=== PATIENT | male | born 1980 | race Caucasian/White ===

== ENCOUNTER 2017-08-21 18:21 | Inpatient (IN) | payer SELFPAY ==
[2017-08-21] MEDS ORDERED: AMIODARONE HCL 150 MG/3 ML VIAL IV ONE ×2 (18:25→18:31)
[2017-08-21] MEDS ORDERED: AMIODARONE HCL 200 ML IV ONE (18:28)
[2017-08-21] MEDS ORDERED: NS 1,000 ML IV ONE (18:30)
[2017-08-21] MEDS ORDERED: AMIODARONE A.FIB-6HR INFSN (ORDER 2/3) IV ONE (18:30)
[2017-08-21] MEDS ORDERED: ONDANSETRON 4 MG/2 ML VIAL IVP ONE (18:30)
[2017-08-21] MEDS ORDERED: LORazepam 2 MG/ML INJ ONE (18:32)
--- NOTE | 2017-08-21 18:32 | CPEKG ---
Heart Rate: 154 RR Interval: 390 P-R Interval: 164 QRSD Interval: 96 QT Interval: 276 QTC Interval: 442 P [place]: 76 QRS [place]: 86 T Wave [place]: 34 EKG Severity - ABNORMAL ECG - EKG Impression: SINUS TACHYCARDIA EKG Impression: VENTRICULAR BIGEMINY EKG Impression: ST DEPRESSION, CONSIDER ISCHEMIA, INF LEADS Electronically Signed By: Birdie Coronado 21-Aug-2017 22:22:43
[2017-08-21 18:37] LABS: % IMMATURE GRANULYOCYTES 0.3 % (0.0-1.1); ABSOLUTE IMMATURE GRANULOCYTES 0.03 10^3/uL (0.00-0.10); ADD DIFF? NO; ADD MORPH? NO; ADD SCAN? NO; ATYPICAL LYMPHOCYTE FLAG 0 (0-99); FRAGMENT RBC FLAG 0 (0-99); HEMATOCRIT 44.5 % (40.0-51.0); HEMOGLOBIN 15.4 g/dL (13.7-17.5); LEFT SHIFT FLG 0 (0-99); LIPEMIA HEMOLYSIS FLAG 90 (0-99); MEAN CELL HEMOGLOBIN 30.2 pg (27.9-34.1); MEAN CELL HEMOGLOBIN CONCENTR. 34.6 g/dL (32.4-36.7); MEAN CELL VOLUME 87.3 fL (81.5-99.8); MEAN PLATELET VOLUME 9.2 fL (8.7-11.7); PLATELET CLUMPS FLAG 20 (0-99); PLATELET COUNT 287 10^3/uL (150-400); RED CELL DISTRIBUTION WIDTH 12.1 % (11.5-15.2)
[2017-08-21] MEDS ORDERED: MAGNESIUM SULF 2 GM/WATER 50 ML BAG IV ONE (18:37)
[2017-08-21 18:52] LABS: INR 0.96 (0.83-1.16)
[2017-08-21 18:56] LABS: ANION GAP 20 mEq/L (8-16); CALCIUM 9.4 mg/dL (8.5-10.4); CARBON DIOXIDE 18 mEq/l (22-31); CHLORIDE 102 mEq/L (97-110); CREATININE 0.9 mg/dL (0.7-1.3); ETHANOL SERUM < 10 mg/dL (0-10); GLOMERULAR FILTRATION RATE > 60; GLUCOSE 163 mg/dL (70-100); SODIUM 140 mEq/L (134-144)
[2017-08-21] MEDS ORDERED: POTASSIUM Cl (KCl) 10 MEQ/100 ML BAG IV ONE (19:00)
[2017-08-21] MEDS ORDERED: IOPAMIDOL (ISOVUE 370) 100 ML BTL IV ONE (19:05)
[2017-08-21 19:08] LABS: CREATINE KINASE-MB FRACTION 0.98 ng/mL (0.00-3.19); TROPONIN I < 0.012 ng/mL (0.000-0.034)
[2017-08-21 19:10] LABS: APTT 24.6 SEC (23.0-38.0)
[2017-08-21] MEDS ORDERED: POTASSIUM Cl (KCl) 100 ML IV SCH (19:15)
--- NOTE | 2017-08-21 19:16 | EDPHY ---
H & P Time Seen by Provider: 08/21/17 18:40 HPI/ROS: HPI Cardiac arrest. 36-year-old male by ambulance from a local climbing gym. Bystanders witnessed the patient walking across the gym floor. He suddenly collapsed. He appeared to convulse briefly. Bystanders did not detect a pulse. An AED was placed. It indicated to shock secondary to ventricular tachycardia. He was shocked once. He regained consciousness. He appeared confused. EMS reported a tachycardic wide complex rhythm on arrival. He does not remember immediate events prior to his cardiac arrest. ROS Constitutional: No fever, no chills. As above. Eyes: No discharge. No changes in vision. ENT: No sore throat. No nasal congestion or rhinorrhea. Respiratory: No cough. No shortness of breath. Cardiac: No chest pain, no palpitations. Gastrointestinal: No abdominal pain, no vomiting, no diarrhea. Genitourinary: No hematuria. No dysuria or increased frequency with urination. Musculoskeletal: No back pain. No neck pain. No myalgias or arthralgias. Skin: No rashes. Neurological: No headache. No focal weakness or altered sensation. Past medical history: Patient denies any past medical history. His father apparently had a heart attack in his 50s. The patient does not smoke. Denies IV drug street drug use. Denies alcohol. Social history: Here by himself. As above. Physical Exam: General Appearance: Alert, confused. Tracks with eyes but slow to answer questions. Does answer questions appropriately however when redirected. This patient appears well-hydrated and well-nourished. Eyes: Pupils equal and round 3-2 mm bilaterally, no pallor or injection. No lid edema, erythema or injection. No nystagmus. ENT, Mouth: Mucous membranes are moist. The pharyngeal tissues are unremarkable. No edema or swelling. No asymmetry suggestive of abscess. No erythema or exudates. No significant tongue lacerations or abrasions. Respiratory: There are no retractions, lungs are clear to auscultation with good air movement bilaterally. Cardiovascular: Regular rate and rhythm. Tachycardia. No murmur appreciated. Gastrointestinal: Abdomen is soft and nontender, no masses, bowel sounds normal. No focal tenderness at McBurney's point. No Hurtado sign. Neurological: Motor sensory function is grossly intact. Cranial nerves are normal. Skin: Warm and dry, no rashes. Musculoskeletal: Neck is supple and nontender. Extremities are symmetrical. All joints range without pain or impingement. Psychiatric: Mild agitation. No depression. Database: EKG: EKG time is 6:24 p.m.: EKG shows a sinus rhythm with ventricular bigeminy ST depressions noted in the inferior leads. Ventricular rate of 154. Interpreted by me. EKG time is 7:36 p.m.; EKG shows a narrow complex normal sinus rhythm with a ventricular rate of 94. Intermittent PVC noted. The ND, QRS, QT intervals are within normal limits. There are no ST-T wave changes indicative of ischemic or injury pattern. No evidence of right heart strain. No evidence of WPW, Brugada syndrome, hypertrophic cardiomyopathy. Interpreted by me. Imaging: Chest x-ray AP portable; the cardiac mediastinal silhouette is unremarkable. No evidence of infiltrate or pneumothorax. No acute cardiopulmonary disease process noted. Interpreted by me. CT scan of head without contrast; no pulmonary embolism, mild pulmonary edema and mild cardiomegaly. Results were discussed with staff radiologist. Procedures: Emergency department course: On initial arrival, patient placed on shelter monitor. Advanced airway equipment to the bedside. Pacer pads placed. High-flow nasal cannula oxygen started. Pulse oximetry on 10 L 95%. 2 IVs placed bilateral antecubital. Patient started on IV normal saline with 1 L to be given over the next hour. EKG obtained and reviewed by myself. After interpretation of EKG, patient was given 150 mg of IV amiodarone slow push. EKG changes as noted above were not significantly altered by this medication. He was given an additional 150 mg of IV amiodarone slow push followed by a drip at 1 milligram/minute. He was given 2 g of IV magnesium secondary to initial hypokalemia on i-STAT at 2.5. His formal laboratory potassium is 3.0. He was started on potassium replacement at 10-20 mEq per hour while in the emergency department. Echocardiogram ordered. CT scan of head without contrast secondary to confusion/altered mental status ordered. 7 o'clock, echocardiogram being performed. Cardiology paged. Initial images indicate no evidence of significant right heart strain. Significant pulmonary embolism unlikely. 7:15 p.m., spoke with on-call installation specialist, Dr. Watt. Case discussed in detail with him. He agrees with above emergency department management. He is requesting we admit the patient to the hospitalist service, ICU and he will see the patient after admission. I discussed with him coming to the emergency department to see this patient now. He does not feel this is necessary at this time. 7:20 p.m., echocardiogram completed. Patient sent for CT imaging of head and CT angio chest. 7:30 p.m., spoke with on-call hospitalist. Dr. Jaren Cisneros will accept this patient for admission under the hospitalist service after the patient has been seen by Cardiology. 7:50 p.m., patient re-evaluated. He is alert and oriented. He is responding to questions appropriately. He has no complaints at this time. ekg monitor shows a narrow complex sinus rhythm with ventricular rate of 72. Blood pressure is 126/75. The patient will be admitted to Cardiology, Dr. Brenden Keller who is on his way to the hospital currently to see this patient. 8:20 p.m., Dr. Watt of the Cardiology Service saw this patient in the emergency department. No plan to take him to the laborer cutting tool at this time. Dr. Watt are agrees with emergency department management and does not have any further recommendations at this time. The patient's remaining emergency department course under my care has been unremarkable. He has had no chest pain or shortness of breath. He was admitted to the ICU in stable and improved condition by the cardiology service. Differential Diagnosis: The differential diagnosis on this patient includes but is not limited to cardiac arrest, ventricular tachycardia, hypokalemia induced ventricular tachycardia/ventricular fibrillation, possible anoxic brain injury. This represents a partial list of diagnoses considered. These considerations are based on history, physical exam, past history, reassessment and diagnostic testing. Smoking Status: Never smoked Constitutional: Initial Vital Signs Temperature (C) 36.8 C 08/21/17 18:18 Heart Rate 140 H 08/21/17 18:18 Respiratory Rate 0 L 08/21/17 18:18 Blood Pressure 170/81 H 08/21/17 18:18 O2 Sat (%) 94 08/21/17 18:18 O2 Delivery Mode Nasal Cannula O2 (L/minute) 2 Allergies/Adverse Reactions: No Known Allergies Allergy (Unverified 08/21/17 22:08) Home Medications: Medication Instructions Recorded NK [No Known Home Meds] 08/21/17 Medical Decision Making Critical Care Time: I spent a total of 52 minutes of critical care time in obtaining history, performing a physical exam, bedside monitoring of interventions, collecting and interpreting tests and discussion with consultants but not including time spent performing procedures. - Data Points Laboratory Results: Laboratory Results 08/21/17 18:16 08/21/17 18:16 Medications Given: Discontinued Medications Amiodarone HCl (Amiodarone Hcl) 150 mg IV EDNOW ONE Stop: 08/21/17 18:26 Last Admin: 08/21/17 18:25 Dose: 150 mg Amiodarone HCl (Amiodarone Hcl) 150 mg IV EDNOW ONE Stop: 08/21/17 18:32 Last Admin: 08/21/17 18:31 Dose: 150 mg Amiodarone HCl (Amiodarone Hcl) 200 mls @ 33.333 mls/hr IV ONCE ONE PRN Reason: Protocol Stop: 08/22/17 00:29 Last Admin: 08/21/17 18:37 Dose: 200 mls Sodium Chloride (Ns) 1,000 mls @ 0 mls/hr IV EDNOW ONE; Wide Open PRN Reason: Protocol Stop: 08/21/17 18:31 Last Admin: 08/21/17 18:27 Dose: 1,000 mls Potassium Chloride (Potassium Cl 10 Meq (Premix)) 100 mls @ 100 mls/hr IV Q1H [place] Stop: 08/21/17 22:14 Last Admin: 08/21/17 19:05 Dose: 100 mls Potassium Chloride 10 meq/ (Sodium Chloride) 100 mls @ 100 mls/hr IV Q1H [place] Stop: 08/21/17 21:14 Last Admin: 08/21/17 21:19 Dose: 100 mls Amiodarone HCl (Amiodarone Hcl) 200 mls @ 16.667 mls/hr IV CONT [place] PRN Reason: Protocol Stop: 02/18/18 00:29 Last Admin: 08/22/17 00:32 Dose: 200 mls Metoprolol Tartrate (Lopressor) 25 mg PO ONCE ONE Stop: 08/22/17 12:55 Last Admin: 08/22/17 13:12 Dose: 25 mg Ondansetron HCl (Zofran) 4 mg IVP EDNOW ONE Stop: 08/21/17 18:31 Last Admin: 08/21/17 18:27 Dose: 4 mg Departure - Departure Disposition: [facility] Inpatient Acute Clinical Impression: Cardiac arrest, Altered mental status, Ventricular bigeminy, Hypokalemia
[2017-08-21] MEDS: POTASSIUM Cl (KCl) 10 MEQ in NS 100 ML IV SCH ×2 (20:07→21:19)
--- NOTE | 2017-08-21 21:15 | ECHO ---
[email or web address] [address] [address] Main: [phone] Fax: Transthoracic Echocardiogram Name: ALFREDO MARINO MR#: [id number] Study Date: 08/21/2017 Study Time: 07:10 PM Date of : 1980 Age: 36 year(s) Height: 167.6 cm (66 in.) Weight: 72.58 kg (160 lb.) BSA: 1.82 m2 Gender: Male Examination: RAE Indication: Post Cardiac Arrest, Defibrillator shock in field post 3 minutes CPR, Increased D-dimer Image Quality: Contrast: Requested by: Birdie Bojorquez BP: 130 mmHg/68 mmHg Heart Rate: Rhythm: Tachycardia Indication: Post Cardiac Arrest, Defibrillator shock in field post 3 minutes CPR, Increased D-dimer Procedure Staff Vacation Guide: Arden Clemons Reading Physician: Shaen Lee Requesting Provider: Conclusions: Normal global systolic LV function. EF is 65 %. Trivial tricuspid valve regurgitation. The aorta is normal. No pericardial effusion. Measurements: Chambers Valvular Assessment AV/MV Valvular Assessment TV/PV Normal Normal Normal Name Value Range Name Value Range Name Value Range Ao Qian (MM): 3.1 cm (2.2 cm-3.7 AV Vmax: 1.71 m/s (1 m/s-1.7 TR Vmax: 2.88 mm/s ( - ) cm) m/s) TR PGmax: 33 mmHg ( - ) IVSd (2D): 0.8 cm (0.6 cm-1.1 AV maxP mmHg ( - ) syst. PAP: 38 mmHg ( - ) cm) LVOT Vmax: 1.14 m/s (0.7 m/s-1.1 PV Vmax: 1.36 m/s (0.6 m/s-0.9 LVDd (2D): 5.3 cm (4.2 cm-5.9 m/s) m/s) cm) MV E Vmax: 1.04 m/s ( - ) PV PGmax: 7 mmHg ( - ) LVDs (2D): 3.4 cm (2.1 cm-4 MV A Vmax: 0.71 m/s ( - ) cm) MV E/A: 1.46 ( - ) LVPWd (2D): 1.1 cm (0.6 cm-1 cm) LVEF (2D): 65 (>=54 %) Continued Measurements: Valvular Assessment TV/PV Name Value CVP (est.): 5 mmHg Patient: ALFREDO MARINO Study Date: 08/21/2017 Page 1 of 2 07:10 PM Findings: Left Ventricle: Normal size left ventricle. No LV hypertrophy. Normal global systolic LV function. EF is 65 %. Bigeminy with tachycardia Right Ventricle: Normal size right ventricle. No RV hypertrophy. Normal RV function. Left Atrium: The left atrium is normal in size. Right Atrium: The right atrium is normal in size. Mitral Valve: The mitral valve is normal in appearance and function. Aortic Valve: The aortic valve is normal in appearance and function. The aortic valve is tri-leaflet. Tricuspid Valve: The tricuspid valve is normal in appearance and function. Trivial tricuspid valve regurgitation. Pulmonary artery pressure is not obtained due to inadequate TR jet. Pulmonic Valve: The pulmonic valve is normal in appearance and function. Aorta: The aorta is normal. Pericardium: No pericardial effusion. Exam Comments: This is a emergent echo to evaluate for left venticular function and pericardial effusion. Ectopy. (No Signature Object) Patient: ALFREDO MARINO Study Date: 08/21/2017 Page 2 of 2 07:10 PM [id number]
--- NOTE | 2017-08-21 22:38 | GCON ---
[f rep st] CONSULTATION DATE OF CONSULTATION: 08/21/2017 CHIEF COMPLAINT: VT arrest. 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 The patient apparently then collaps ed and an AED was attached to the patient which showed the patient was in apparently wide-complex tac hycardia/VT. Patient was cardioverted. EMS was called. The patient en route to [facility] was found to have a wide-complex rhythm which appeared to be bigeminal, potentially trigeminal. On the patient's stat labs, it was found that the patient had initially a potassium of 2.5. Upon r epeat, it was at 3.0. The patient was administered immediately IV magnesium as well as IV potassium. The patient's rhythm converted. The patient was also given IV amiodarone bolus and drip. Currentl y, the patient's rhythm is normal sinus rhythm with no injury current or ST changes indicative of isc hemia. The patient also had a stat echo performed which showed a globally normal ventricular LVEF wi th no effusion or hypertrophic cardiomyopathy present. The patient's troponin, the 1st set is normal . Currently, the patient is awake and alert although somewhat groggy from his episode earlier this e vening. According to the patient, no smoking or drinking. No drug use. Patient's blood pressure is currently 120/70, the heart rate currently is 72, saturating 98% on room air. PAST FAMILY MEDICAL HISTORY: No significant history. FAMILY HISTORY: Significant for coronary artery disease on the paternal side. Of note, the patient indicates his father was a heavy smoker and not in the current physical shape he was in. HOME MEDICATIONS: None. 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 REVIEW OF SYSTEMS: Patient currently indicates feeling somewhat groggy and slightly lethargic, but d enies any chest pain, abdominal pain, back pain, lower extremity pain, or shortness of breath. PHYSICAL EXAM: VITAL SIGNS: Currently afebrile 96, blood pressure 120/70, with heart rate 72, respi rations 12, 98% on 2 L nasal cannula. HEENT: Pupils equal, round, reactive to light and accommodati on. Extraocular movements intact. CARDIOVASCULAR: Regular rhythm. S1, S2. LUNGS: Clear to auscu ltation bilaterally. ABDOMEN: Soft, nontender. No guarding. EXTREMITIES: No clubbing, no cyanosi s. No edema. NEUROLOGIC: Patient is alert x3. LABORATORY VALUES: Currently show a sodium 140, baseline potassium 3.0, chloride 102, carbon dioxide 18, BUN 4, creatinine 0.9, glucose 163. Troponin 0.012. TSH 2.4. D-dimer 2.0. White blood cell c ount 9.2, hemoglobin 15.4, hematocrit 44.5, platelet count 287. ASSESSMENT/PLAN: Ventricular tachycardia arrest: At this time, the patient's etiology for the VT ar rest is most likely secondary to his electrolyte abnormalities, given his profoundly low potassium le yolanda. A baseline magnesium level was not obtained; however, both magnesium and potassium were replete d. Since the patient had repletion of his levels, his rhythm is now normal sinus rhythm. There does not appear to be any injury current through his ECG that would indicate an ST-elevation myocardial i nfarction or [id number] myocardial infarction process. Troponins are negative x1 set. Echocard iogram shows normal ventricular function with no evidence of hypertrophic cardiomyopathy or effusion. Would continue with the patient's amiodarone drip overnight. Recheck electrolytes in the morning, especially including potassium, magnesium. We will continue to follow in the intensive care unit becka sanchez. /[id number]/MODL
[2017-08-21] MEDS ORDERED: OXYCODONE/APAP 5/325 TAB PO PRN (23:00)
[2017-08-21] MEDS ORDERED: NS 1,000 ML IV SCH (23:00)
[2017-08-21] MEDS ORDERED: TEMAZEPAM 15 MG CAP PO PRN (23:13)
[2017-08-21] MEDS ORDERED: PROTOCOL MAGNESIUM 1 DOSE IV PRN (23:19)
[2017-08-21] MEDS ORDERED: PROTOCOL POTASSIUM 1 DOSE MISC PRN (23:19)
[2017-08-22] MEDS ORDERED: AMIODARONE A.FIB-6HR INFSN (ORDER 2/3) IV SCH (00:30)
[2017-08-22] MEDS ORDERED: AMIODARONE/DEXTROSE 200 ML IV SCH (00:30)
[2017-08-22 05:25] LABS: % IMMATURE GRANULYOCYTES 0.3 % (0.0-1.1); ABSOLUTE IMMATURE GRANULOCYTES 0.06 10^3/uL (0.00-0.10); ADD DIFF? NO; ADD MORPH? NO; ADD SCAN? NO; ATYPICAL LYMPHOCYTE FLAG 0 (0-99); FRAGMENT RBC FLAG 0 (0-99); HEMATOCRIT 39.4 % (40.0-51.0); LEFT SHIFT FLG 0 (0-99); LIPEMIA HEMOLYSIS FLAG 90 (0-99); MEAN CELL HEMOGLOBIN CONCENTR. 35.5 g/dL (32.4-36.7); MEAN CELL VOLUME 87.2 fL (81.5-99.8); MEAN PLATELET VOLUME 9.1 fL (8.7-11.7); PLATELET CLUMPS FLAG 0 (0-99); PLATELET COUNT 217 10^3/uL (150-400); RED BLOOD CELL COUNT 4.52 10^6/uL (4.40-6.38); RED CELL DISTRIBUTION WIDTH 12.2 % (11.5-15.2)
[2017-08-22 05:51] LABS: ANION GAP 14 mEq/L (8-16); CALCIUM 8.7 mg/dL (8.5-10.4); CARBON DIOXIDE 21 mEq/l (22-31); CHLORIDE 107 mEq/L (97-110); CREATININE 0.7 mg/dL (0.7-1.3); GLOMERULAR FILTRATION RATE > 60; GLUCOSE 127 mg/dL (70-100); MAGNESIUM 1.9 mg/dL (1.6-2.3); POTASSIUM 4.1 mEq/L (3.5-5.2); SODIUM 142 mEq/L (134-144)
[2017-08-22 06:03] LABS: TROPONIN I 0.021 ng/mL (0.000-0.034)
--- NOTE | 2017-08-22 08:06 | CPEKG ---
Heart Rate: 94 RR Interval: 638 P-R Interval: 180 QRSD Interval: 92 QT Interval: 368 QTC Interval: 461 P [place]: 65 QRS [place]: 261 T Wave [place]: 73 EKG Severity - OTHERWISE NORMAL ECG - EKG Impression: SINUS RHYTHM EKG Impression: VENTRICULAR PREMATURE COMPLEX EKG Impression: SUPERIOR QRS AXIS Electronically Signed By: John Dick 23-Aug-2017 05:32:04
--- NOTE | 2017-08-22 10:26 | PDCARPN ---
Cardiology Progress Note Assessment/Plan: 36-year-old male who experienced cardiac arrest yesterday following a rock climbing session at a local climbing gym. Received is a single shock from an AED which restored sinus is bigeminal PVCs. No symptoms today. No prior history of syncope. Reports that he has had "skips" in his heart rhythm since he was a teenager. Admits to sporadic food intake with occasional fasting. However, he says that he has been eating regularly for the past several days. Initial potassium was 2.5. Received potassium and magnesium supplementation. Echocardiogram demonstrates a structurally normal heart. Troponin this a.m. is minimally elevated at 0.434. No family h/o SCD. No symptoms suggestive of angina. No illicit substances. Plan: - CT coronary angiogram to r/o anomalous coronary anatomy. - EP service consult. 08/22/17 10:33 Subjective: No complaints. Objective: Vital Signs (8 Hrs) Pulse Resp BP Pulse Ox 08/22/17 09:00 72 11 L 112/53 L 96 08/22/17 08:00 62 16 118/72 94 08/22/17 07:00 66 22 H 121/55 H 94 08/22/17 06:00 77 16 127/61 H 99 08/22/17 05:00 70 15 114/56 L 2 L 08/22/17 04:00 71 16 117/64 99 08/22/17 03:00 55 L 14 117/56 L 98 Intake/Output (24 Hrs) 08/21/17 08/22/17 08/23/17 05:59 05:59 05:59 Intake Total 2429 78.7 Output Total 2900 900 Balance -471 -821.3 Intake: Oral (ml) 400 IV Infused (ml) 2028 78.7 Amiodarone HCl 200 ml @ 252 78.7 16.667 mls/hr IV CONT SASKIA Rx#:[id number] Ns 1,000 ml @ 100 mls/hr 777 IV CONT [place] Rx#: [id number] Output: Urine (ml) 2900 900 Urinal 2900 900 Other: Weight 73 kg Number of Voids Urinal 2 Result Diagrams: 08/22/17 05:15 08/22/17 05:15 Cardiac Labs: Cardiac Lab Results (72 Hrs) 08/22/17 05:15 Troponin I 0.021 - Physical Exam Constitutional: WDWN, healthy appearing, no apparent distress Eyes: anicteric sclera Ears, Nose, Mouth, Throat: moist mucous membranes Cardiovascular: regular rate and rhythm, no murmurs, no rubs, no gallops Respiratory: clear to auscultate bilat Gastrointestinal: normoactive bowel sounds, no tenderness, no masses Skin: no rashes, no edema Neurologic: AAOx3 Psychiatric: not anxious ICD10 Worksheet Patient Problems: Problems Problem Status Onset Altered mental status Acute Cardiac arrest Acute Hypokalemia Acute Ventricular bigeminy Acute
--- NOTE | 2017-08-22 11:33 | ASMTCMCOM ---
CM Note CM Note Notes: 08/22/2017 Case Management Note Reviewed chart. There are no identified case management d/c needs d/t pt age and activity levels prior to admission. 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 Case Management d/c poc: home independent with follow up as directed. Case Management available if needs change. Date Signed: 08/22/2017 11:33 AM Electronically Signed By:Marissa Gomez RN
[2017-08-22] MEDS ORDERED: METOPROLOL TARTRATE 25 MG TAB PO ONE (12:54)
[2017-08-22] MEDS ORDERED: IOPAMIDOL (ISOVUE 370) 100 ML BTL IV ONE ×2 (14:31)
[2017-08-22] MEDS ORDERED: GADOBUTROL 10 ML VIAL IVP ONE (16:32)
--- NOTE | 2017-08-22 17:11 | ASMTCMCOM ---
CM Note CM Note Notes: Cisco lives out of his van, according to his mother. Case Management will assess resources and primary care needs for him going forward. Date Signed: 08/22/2017 05:11 PM Electronically Signed By:Phoebe Pedraza RN
[2017-08-23 05:13] LABS: % IMMATURE GRANULYOCYTES 0.2 % (0.0-1.1); ABSOLUTE IMMATURE GRANULOCYTES 0.02 10^3/uL (0.00-0.10); ADD DIFF? NO; ADD MORPH? NO; ADD SCAN? NO; ATYPICAL LYMPHOCYTE FLAG 0 (0-99); FRAGMENT RBC FLAG 0 (0-99); HEMATOCRIT 39.2 % (40.0-51.0); HEMOGLOBIN 13.3 g/dL (13.7-17.5); LEFT SHIFT FLG 0 (0-99); LIPEMIA HEMOLYSIS FLAG 90 (0-99); MEAN CELL HEMOGLOBIN 30.2 pg (27.9-34.1); MEAN CELL HEMOGLOBIN CONCENTR. 33.9 g/dL (32.4-36.7); MEAN CELL VOLUME 88.9 fL (81.5-99.8); MEAN PLATELET VOLUME 9.2 fL (8.7-11.7); PLATELET CLUMPS FLAG 10 (0-99); PLATELET COUNT 203 10^3/uL (150-400); RED BLOOD CELL COUNT 4.41 10^6/uL (4.40-6.38); RED CELL DISTRIBUTION WIDTH 12.6 % (11.5-15.2)
[2017-08-23 05:29] LABS: INR 1.05 (0.83-1.16); PROTIME(PATIENT) 13.9 SEC (12.0-15.0)
[2017-08-23 05:30] LABS: ALANINE AMINOTRANSFERASE 90 IU/L (21-72); ALBUMIN 3.5 g/dL (3.5-5.0); ALKALINE PHOSPHATASE 58 IU/L (38-126); ANION GAP 11 mEq/L (8-16); APTT 27.8 SEC (23.0-38.0); ASPARTATE AMINOTRANSFERASE 54 IU/L (17-59); CALCIUM 9.2 mg/dL (8.5-10.4); CARBON DIOXIDE 25 mEq/l (22-31); CHLORIDE 105 mEq/L (97-110); CREATININE 0.8 mg/dL (0.7-1.3); GLOMERULAR FILTRATION RATE > 60; GLUCOSE 99 mg/dL (70-100); MAGNESIUM 1.8 mg/dL (1.6-2.3); SODIUM 141 mEq/L (134-144); TOTAL PROTEIN 5.9 g/dL (6.3-8.2)
[2017-08-23] MEDS ORDERED: ceFAZolin 2 GM/SWFI 2 GM/20 ML SYR IVP ONE (06:00)
[2017-08-23] MEDS ORDERED: BACITRACIN IRRIGATION/NS 50,000 UNITS/1,000 ML BTL IRR ONE (06:00)
[2017-08-23] MEDS ORDERED: NS 1,000 ML IV ONE (06:00)
[2017-08-23] MEDS: METOPROLOL SUCCINATE XR 25 MG TAB PO SCH (12:03)
[2017-08-23] MEDS ORDERED: MAGNESIUM SULF 1 GM/DEXTROSE 100 ML IV ONE (14:36)
[2017-08-23 18:28] LABS: POTASSIUM 3.9 mEq/L (3.5-5.2)
[2017-08-23] MEDS ORDERED: POTASSIUM CL 10 MEQ TAB PO ONE (21:44)
[2017-08-24 05:50] LABS: MAGNESIUM 1.8 mg/dL (1.6-2.3)
[2017-08-24] MEDS ORDERED: ceFAZolin 2 GM/SWFI 2 GM/20 ML SYR IVP ONE (06:00)
[2017-08-24] MEDS ORDERED: BACITRACIN IRRIGATION/NS 50,000 UNITS/1,000 ML BTL IRR ONE (06:00)
[2017-08-24] MEDS ORDERED: MAGNESIUM SULF 1 GM/DEXTROSE 100 ML IV ONE (08:30)
[2017-08-24] MEDS: METOPROLOL SUCCINATE XR 25 MG TAB PO SCH (09:26)
--- NOTE | 2017-08-24 13:13 | ASMTCMCOM ---
CM Note CM Note Notes: 08/24/2017 Case Management Note Met w/pt and Phoebe Pedraza. Pt provided ID and address: [address] [place] [id number] Brother is Mendoza and can be reached at [phone]. Mendoza is returning to on Sunday. Friend Hillary is second emergency contact and can be reached at [phone]. She will be in town until 09/03. Pt declined meals on wheels. Mendoza has moved his vehicle and is bringing a change of clothes. Discussed concerns re: financial burden of hospitalization. Provided contact to Pat Tai [phone]. Pt will need appointment with [facility] prior to d/c to connect for follow up and counseling[facility] prior to AICD placement. Pt agreed to apply for insurance through the open enrollment process for [place]. Procedure tentatively planned for Sunday. Case Management d/c poc: Home independent with friend support and access to [facility] for support. Case Management to follow. Date Signed: 08/24/2017 01:12 PM Electronically Signed By:Marissa Gomez RN
--- NOTE | 2017-08-24 15:09 | ASMTCMCOM ---
CM Note CM Note Notes: Appointment made for [facility] for 08/28 at 09:[address] Combs. He has been informed the copay is 20 dollars and to bring phot ID and any medical records and list of medications Date Signed: 08/24/2017 03:08 PM Electronically Signed By:Tracy Roche RN
[2017-08-24] MEDS ORDERED: LR 1,000 ML IV ONE (16:00)
--- NOTE | 2017-08-24 16:13 | ASMTCMCOM ---
CM Note CM Note Notes: Ashlir met with Pt. today at the request of Director of CM and floor RN CM. Provided psychosocial counseling support and resources for people who've suffered a sudden cardiac arrest. Pt. grateful for time to talk. Date Signed: 08/24/2017 04:13 PM Electronically Signed By:Kym Peoples LCSW
[2017-08-24 18:51] LABS: POTASSIUM 4.3 mEq/L (3.5-5.2)
[2017-08-24] MEDS ORDERED: CHLORHEXIDINE GLUC HIBICLENS 118 ML BTL TP ONE (21:19)
[2017-08-25 05:31] LABS: MAGNESIUM 1.8 mg/dL (1.6-2.3); POTASSIUM 3.9 mEq/L (3.5-5.2)
[2017-08-25] MEDS ORDERED: MAGNESIUM SULF 1 GM/DEXTROSE 100 ML IV ONE (05:39)
[2017-08-25] MEDS ORDERED: POTASSIUM CL 10 MEQ TAB PO ONE (05:41)
[2017-08-25] MEDS ORDERED: BACITRACIN IRRIGATION/NS 50,000 UNITS/1,000 ML BTL IRR ONE (06:00)
[2017-08-25] MEDS ORDERED: ceFAZolin 2 GM/SWFI 2 GM/20 ML SYR IVP ONE (06:00)
[2017-08-25] MEDS ORDERED: NS 1,000 ML IV ONE (06:00)
[2017-08-25] MEDS ORDERED: LR 1,000 ML IV ONE (06:00)
[2017-08-25] MEDS ORDERED: fentaNYL 100 MCG/2 ML INJ ONE (09:23)
[2017-08-25] MEDS ORDERED: LIDOCAINE 1% 300 MG/30 ML SDV ONE (09:23)
[2017-08-25] MEDS ORDERED: BUPIVACAINE 0.5% 30 ML SDV ONE (09:23)
[2017-08-25] MEDS ORDERED: MIDAZOLAM 2 MG/2 ML VIAL ONE (09:23)
--- NOTE | 2017-08-25 09:58 | PDHPUP ---
History & Physical Update H&P update statement: This history and physical update is based on an assessment of the patient which was completed after admission or registration (within 24 hours), but prior to the surgery/procedure. H&P update: H&P reviewed & patient examined, no change in patient's condition since H&P completed
--- NOTE | 2017-08-25 09:58 | PDPROPOC ---
Sedation Plan of Care Sedation Plan of Care: vital signs stable, mental status noted, patient educated of risks, benefits, alternatives, patient can tolerate sedation ASA Classification: ASA 3 Planned drugs: fentanyl, midazolam Mallampati Score: Class 3 Mallampati Reference Image: Patient passed 3-3-2 rule?: Yes
[2017-08-25] MEDS: METOPROLOL SUCCINATE XR 25 MG TAB PO SCH ×2 (10:36→12:48)
--- NOTE | 2017-08-25 11:45 | GCON ---
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 The patient completed his workout at which point in time he was gathering his equipment and collapsed. No prodrome was noted. After this collapse, CPR was started by bystanders and AED from the gym was attached. After attachment of the AED, a wide-complex tachycardia was noted and shock was advised. Patient was shocked and normal sinus rhythm was restored. In the meanwhile, EMS was called. By the time EMS got there, he was found to be in bigeminal rhythm with normal pulse and he had a large vomitus. He was transferred to the hospital. He was delirious at that point in time. Electrolyte imbalance was corrected. He was given amiodarone, which was eventually stopped. He continued to have PVCs in the bigeminal pattern, occasionally 2 in a row and 3 in a row, PVCs were noted. Then, the patient was given beta blockers and eventually, after 30 hours, his PVCs resolved. Echocardiogram was done which was normal. Cardiac MRI was done which was normal. The patient's cardiac enzymes were not concerning. He is hemodynamically stable. He denies any history of drug abuse, though he mentions that he has been starving himself somewhat. He has never passed out before. He has not had episodes of dizziness prior to this. FAMILY HISTORY: Noncontributory. No sudden cardiac in the family. HOME MEDICATIONS: None. 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 No drug abuse. Nonsmoker. REVIEW OF SYSTEMS: Other than above is negative. PHYSICAL EXAM: VITAL SIGNS: Blood pressure of 120/70, pulse of 67, respiratory rate 16. GENERAL: The patient is alert, oriented, in no acute distress. HEENT: Pupils equal reacting to light and accommodating. No JVD. No thyromegaly. Pharynx normal. NECK: No thyromegaly. No lymphadenopathy. CHEST : Good air entry bilaterally equal. No rales, rhonchi, rub. S1, S2 regular. No S3. No murmurs heard. ABDOMEN: Soft, nontender. No guarding or rigidity. Bowel sounds present. EXTREMITIES: No edema. Pulses are normal. No cyanosis. No clubbing. NEUROLOGIC: Grossly intact. PSYCHIATRIC: A little depressed, but asking appropriate questions. Answering questions appropriately. LAB VALUES: Show BUN to be low. IMPRESSION AND PLAN: This is a 36-year-old patient who had sudden cardiac with no discernible etiology though his electrolytes were low. One is guided by the AVID registry which included patients with sudden cardiac and "precipitating" cause for sudden cardiac such as low electrolytes, fever etc The outcome of these patients, who were not randomized to the AVID trial were similar to the patients in AVID trial, who did not get an ICD ( meaning thereby very high rate of recurrence of sudden cardiac and high risk of mortality without an ICD). In view of this, it is generally recommended that these patients get ICD for secondary prevention of sudden cardiac . In view of this, I have discussed this with the patient. I have explained in detail the risks and benefits of this. I elaborated on the need for a dual-chamber ICD considering significant PVCs on occasion, the need for beta vipin as well as possible need for antiarrhythmic in the future. I have also explained the risk of inappropriate shocks to the patient. He understands all this and is agreeable to it after much contemplation over the issue. I will plan on putting in a dual-chamber ICD in this patient. Thank you for letting me participate in the patient's care. /[id number]/MODL MTDD
[2017-08-25 14:32] LABS: % IMMATURE GRANULYOCYTES 0.3 % (0.0-1.1); ABSOLUTE IMMATURE GRANULOCYTES 0.02 10^3/uL (0.00-0.10); ADD DIFF? NO; ADD MORPH? NO; ADD SCAN? NO; ATYPICAL LYMPHOCYTE FLAG 0 (0-99); FRAGMENT RBC FLAG 0 (0-99); HEMATOCRIT 39.7 % (40.0-51.0); HEMOGLOBIN 13.7 g/dL (13.7-17.5); LEFT SHIFT FLG 0 (0-99); LIPEMIA HEMOLYSIS FLAG 90 (0-99); MEAN CELL HEMOGLOBIN 30.5 pg (27.9-34.1); MEAN CELL HEMOGLOBIN CONCENTR. 34.5 g/dL (32.4-36.7); MEAN CELL VOLUME 88.4 fL (81.5-99.8); MEAN PLATELET VOLUME 8.9 fL (8.7-11.7); PLATELET CLUMPS FLAG 0 (0-99); PLATELET COUNT 230 10^3/uL (150-400); RED BLOOD CELL COUNT 4.49 10^6/uL (4.40-6.38)
[2017-08-25 14:56] LABS: ANION GAP 14 mEq/L (8-16); CALCIUM 9.2 mg/dL (8.5-10.4); CARBON DIOXIDE 26 mEq/l (22-31); CHLORIDE 104 mEq/L (97-110); CREATININE 0.6 mg/dL (0.7-1.3); GLOMERULAR FILTRATION RATE > 60; GLUCOSE 95 mg/dL (70-100); MAGNESIUM 1.9 mg/dL (1.6-2.3); POTASSIUM 3.8 mEq/L (3.5-5.2); SODIUM 144 mEq/L (134-144)
[2017-08-25] MEDS ORDERED: ACETAMINOPHEN 325 MG TAB PO PRN (15:10)
[2017-08-25] MEDS ORDERED: MAGNESIUM SULF 2 GM/WATER 50 ML IV ONE (16:00)
[2017-08-25] MEDS ORDERED: POTASSIUM CL 20 MEQ TAB PO ONE (16:00)
[2017-08-25 19:14] LABS: POTASSIUM 4.4 mEq/L (3.5-5.2)
[2017-08-25 19:31] VITALS: RESP 16
[2017-08-26 04:20] LABS: % IMMATURE GRANULYOCYTES 0.2 % (0.0-1.1); ABSOLUTE IMMATURE GRANULOCYTES 0.01 10^3/uL (0.00-0.10); ADD DIFF? NO; ADD MORPH? NO; ADD SCAN? NO; ATYPICAL LYMPHOCYTE FLAG 10 (0-99); FRAGMENT RBC FLAG 0 (0-99); HEMATOCRIT 35.4 % (40.0-51.0); HEMOGLOBIN 12.2 g/dL (13.7-17.5); LEFT SHIFT FLG 0 (0-99); LIPEMIA HEMOLYSIS FLAG 90 (0-99); MEAN CELL HEMOGLOBIN 30.5 pg (27.9-34.1); MEAN CELL HEMOGLOBIN CONCENTR. 34.5 g/dL (32.4-36.7); MEAN CELL VOLUME 88.5 fL (81.5-99.8); MEAN PLATELET VOLUME 9.2 fL (8.7-11.7); PLATELET CLUMPS FLAG 10 (0-99); PLATELET COUNT 214 10^3/uL (150-400); RED CELL DISTRIBUTION WIDTH 12.2 % (11.5-15.2)
[2017-08-26 04:31] LABS: ANION GAP 9 mEq/L (8-16); CALCIUM 8.8 mg/dL (8.5-10.4); CARBON DIOXIDE 29 mEq/l (22-31); CHLORIDE 106 mEq/L (97-110); CREATININE 0.7 mg/dL (0.7-1.3); GLOMERULAR FILTRATION RATE > 60; GLUCOSE 90 mg/dL (70-100); MAGNESIUM 1.9 mg/dL (1.6-2.3); POTASSIUM 4.4 mEq/L (3.5-5.2); SODIUM 144 mEq/L (134-144)
--- NOTE | 2017-08-26 05:39 | CPEKG ---
Heart Rate: 50 RR Interval: 1200 P-R Interval: 172 QRSD Interval: 98 QT Interval: 544 QTC Interval: 497 QRS [place]: 87 T Wave [place]: 107 EKG Severity - ABNORMAL ECG - EKG Impression: ATRIAL-PACED RHYTHM EKG Impression: ABNORMAL T, CONSIDER ISCHEMIA, ANT-LAT LEADS EKG Impression: BORDERLINE PROLONGED QT INTERVAL Electronically Signed By: Bev Hamlin 26-Aug-2017 05:56:48
[2017-08-26 07:32] VITALS: BP 104/86; PULSE 51; TEMP 98.6; O2SAT 96
[2017-08-26] MEDS: METOPROLOL SUCCINATE XR 25 MG TAB PO SCH (10:15)
--- NOTE | 2017-08-26 10:42 | ASDISCHSUM ---
Discharge Information Plan Status:Home with No Needs Medically Cleared to Leave:08/25/2017 Discharge Date:08/26/2017 10:25 AM CM D/C Disposition:Home, Routine, Self-Care ADT D/C Disposition:Home, Routine, Self-Care Projected Discharge Date:08/26/2017 10:25 AM Transportation at D/C: Discharge Delay Reason: Follow-Up Date:08/26/2017 10:25 AM Discharge Slot: Final Diagnosis: Placement Information Patient Contact Information Contact Name:NADIYA Relationship:Friend Address: Work Phone: City: [facility] Phone: State/Zip Code:[place] Email: Financial Information Financial Class:Self-Pay Primary Plan Desc:SELF PAY Primary Plan Number: Secondary Plan Desc: Secondary Plan Number: Assessment Information [facility] CM Progress Note CM Note CM Note Notes: 08/22/2017 Case Management Note Reviewed chart. There are no identified case management d/c needs d/t pt age and activity levels prior to admission. 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 Case Management d/c poc: home independent with follow up as directed. Case Management available if needs change. Date Signed: 08/22/2017 11:33 AM Electronically Signed By:Marissa Gomez RN [facility] CM Progress Note CM Note CM Note Notes: Cisco lives out of his van, according to his mother. Case Management will assess resources and primary care needs for him going forward. Date Signed: 08/22/2017 05:11 PM Electronically Signed By:Phoebe Pedraza RN [facility] CM Progress Note CM Note CM Note Notes: 08/24/2017 Case Management Note Met w/pt and Phoebe Pedraza. Pt provided ID and address: [address] [place] [id number] Brother is Mendoza and can be reached at [phone]. Mendoza is returning to on Sunday. Friend Hillary is second emergency contact and can be reached at [phone]. She will be in town until 09/03. Pt declined meals on wheels. Mendoza has moved his vehicle and is bringing a change of clothes. Discussed concerns re: financial burden of hospitalization. Provided contact to Pat Tai [phone]. Pt will need appointment with [facility] prior to d/c to connect for follow up and counseling. 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 Pt agreed to apply for insurance through the open enrollment process for [place]. Procedure tentatively planned for Sunday. Case Management d/c poc: Home independent with friend support and access to [facility] for support. Case Management to follow. Date Signed: 08/24/2017 01:12 PM Electronically Signed By:Marissa Gomez RN [facility] CM Progress Note CM Note CM Note Notes: Appointment made for [facility] for 08/28 at 09:[address] Combs. He has been informed the copay is 20 dollars and to bring phot ID and any medical records and list of medications Date Signed: 08/24/2017 03:08 PM Electronically Signed By:Tracy Roche RN [facility] CM Progress Note CM Note CM Note Notes: Gertrudis met with Pt. today at the request of Director of CM and floor RN DONNY. Provided psychosocial counseling support and resources for people who've suffered a sudden cardiac arrest. Pt. grateful for time to talk. Date Signed: 08/24/2017 04:13 PM Electronically Signed By:Kym Peoples LCSW Case Management Discharge Plan Note Case Management Discharge Discharge Order Complete? Answers: Yes Patient to Obtain Answers: Independently Medications Transportation Arranged Answers: Family/Friends LACE LACE Length of stay for Answers: 2 days current admission Acuity / Level of Care Answers: Was the patient admitted to hospital via the emergency department? Yes: Comorbidities - select Answers: Previous myocardial all that apply infarction Emergency dept visits in Answers: 1 last 6 months Score: 7 Date Signed: 08/26/2017 10:41 AM Electronically Signed By:Tracy Roche RN Intervention Information
--- NOTE | 2017-08-26 11:08 | EPPROC ---
Electrophysiology Procedure Note: PROCEDURE PERFORMED: 1. Implantation of an A-V Implantable Cardioverter Defibrillator 3. Fluoroscopy INDICATION: This is a 36 yr old with SCD and noted to be in VT and converted by AED. In view of this the pt was a candidate for ICd implant for secondary prevention. Pt had significant sinus bradycardia and hence it was decided to implant a dual chamber pacemaker so as to enable him to tolerate AAD /BB PROCEDURE NOTE: Patient presented to the cardiac catheterization laboratory in a fasting, postabsorptive state. The left infraclavicular area was prepped and draped in the usual sterile fashion. Moderate sedation administered. Lidocaine plus bupivacaine was used for local anesthesia. Using a combination of blunt and sharp dissection and electrocautery, the dissection was carried down to the prepectoral fascia. All bleeding was controlled with electrocautery. Fluoroscopy was utilized during the entire procedure for venous access and placement of the leads. Using usual technique, left cephalic vein was accessed and guidewire placed. Placement of the guide wires into the venous system was confirmed by low pressure blood return and also by visualizing the guide wires advancing into the inferior vena cava. A purse string suture was applied around the guide wires. #10 Fr and #7 Fr sheaths were advanced under fluoroscopic guidance over the guide wires. An active fixation ventricular ICD lead was advanced into the right ventricular apex and screwed in place. An active fixation atrial lead was advanced into the right atrial appendage and screwed in place. The peel away sheaths were removed. Pacing thresholds, sensing parameters and leads impedances were measured. There was no diaphragmatic stimulation at maximum output. The leads were sutured to the prepectoral fascia with 3 non-absorbable sutures. Pocket created and flushed using antibiotic solution. The pocket was again inspected for any bleeding. The leads were attached to the ICD securely. The ICD was inserted into the pocket and secured in place with a nonabsorbable suture. Fluoroscopy was performed in RUIZ and GIGI planes to verify right sided placement of the leads. Also fluoroscopy of the ICD pocket was performed. Defibrillation testing was performed. The ICD pocket was closed in 3 layers with absorbable monocryl sutures. Appropriate dressing was applied. The patient left the cardiac catheterization laboratory in stable condition. Serial Numbers: 1. Device Biotronik Ilivia 7 DR Bertrand SN [id number] 2. Atrial Lead Biotronik Solia S45 SN [id number] 3. Ventricular Lead Biotronik Plexa ProMRI S65 SN [id number] Stimulation Thresholds & Impedance Measurements: 1. Atrial Lead 2.7mV, 0.9@0.4ms, 488Ohms 2. Ventricular Lead 9.8mV, 0.5@0.4ms, 566Ohms Pacing Parameters: 1. Pacing mode 50 2. Lower rate 130 3. Upper tracking rate 130 4. Upper sensor rate 130 Tachycardia therapy parameters: VF zone: Detection 214 bpm First therapy 40 Joule Subsequent therapies 40Joule VT zone: Detection 170bpm First therapy burst pacing at 84% tachycardia CL, 8beats, 3 sequences Second therapy 40 Joule Subsequent therapies 40 Joule Patient Problems: Problems Problem Status Onset Altered mental status Acute Cardiac arrest Acute Hypokalemia Acute Ventricular bigeminy Acute
--- NOTE | 2017-08-26 12:09 | GDS ---
[f rep st] DISCHARGE SUMMARY This is a 36-year-old male, who was working out in the gym when he collapsed. After the witnessed collapse, bystander CPR was started. AED was attached, VT noted. Cardioversion was advised. The patient was shocked. He recovered into spontaneous sinus rhythm with bigeminal pattern. He came to the hospital and was noted to have bigeminal pattern. Beta blockers were started. PAST HISTORY: None. HOME MEDICATIONS: None. SOCIAL HISTORY: Nonsmoker. No drug abuse. LABS: potassium of 3, which was replaced. No other abnormalities HOSPITAL STAY: The patient was admitted to the hospital. Beta blockers were given and over a 30-hour period the PVCs subsided. The patient underwent cardiac MRI, which was normal. CT of the chest demonstrated noncalcified plaque in the proximal LAD near the origin of the 1st diagonal with less than 50 % stenosis. Echocardiogram was normal. The patient underwent an ICD implant. He did well overnight after that, and hence it was decided to discharge the patient. DISCHARGE MEDICATIONS: Metoprolol XR 25 mg once a day. DISCHARGE INSTRUCTIONS: Pacemaker instructions were given. The patient was strongly recommended that he call us if he has fever, chills, nausea, vomiting, swelling, hematoma, discharge from the wound site. A followup appointment will be made with the device clinic as well as with Dr. Steve Reyes in 1 month. The patient is stable at the time of discharge. /[id number]/MODL MTDD
== END 2017-08-26 10:25 | disposition home or self-care (01) | DRG 227 ==
LOC: F2N 21:07 → F2W 08-22 10:52
PROVIDERS: ADMIT Internal Medicine; ATTEND Internal Medicine
PROC: 02HK3KZ Insertion of Defibrillator Lead into Right Ventricle, Percutaneous Approach (ICD-10-PCS; principal; 2017-08-21)
PROC: 02H63KZ Insertion of Defibrillator Lead into Right Atrium, Percutaneous Approach (ICD-10-PCS; principal; 2017-08-21)
PROC: 0JH638Z Insertion of Defibrillator Generator into Chest Subcutaneous Tissue and Fascia, Percutaneous Approach (ICD-10-PCS; principal; 2017-08-21)
DX: I47.2 Ventricular tachycardia (principal); I46.2 Cardiac arrest due to underlying cardiac condition; E87.6 Hypokalemia
CPT/HCPCS: 80305; 82947-QW; 96365; 96366; A9585; C1721; C1769; C1777; C1898; G0480; J0282; J0690; J2060; J2250; J3010; J3475; Q9967